=== PATIENT | female | born 1985 | race Caucasian/White ===

== ENCOUNTER 2020-11-06 07:34 | Day surgery (SDC) | payer OTHER ==
[~2020-11-06 07:34] MED LIST: Lidocaine 1% with EPINEPHrine 1:100,000 50 ML MDV ONE; Midazolam 1 MG/ML 2 ML SDV ONE; Propofol 200 MG/20 ML SDV ONE; Sodium Chloride 0.9% 10 ML ONE; Sodium Tetradecyl Sulfate 1% 20 MG/2 ML SDV ONE; fentaNYL 100 MCG/2 ML SDV ONE
[2020-11-06] MEDS ORDERED: Sodium Chloride 0.9% 1,000 ML IV SCH (08:00)
[2020-11-06] MEDS ORDERED: Propofol 200 MG/20 ML SDV ONE (08:44)
[2020-11-06] MEDS ORDERED: Lidocaine 1% w/EPINEPHrine 50 ML, Sodium Bicarbonate 5 MEQ in Sodium Chloride 0.9% 950 ML INJECT ONE (09:00)
[2020-11-06] MEDS ORDERED: Lidocaine 2% Jelly 30 ML Tube ONE (09:03)
--- NOTE | 2020-11-06 11:26 | OR ---
DATE OF PROCEDURE: 11/06/2020 SURGEON: Ramon Edwards MD PROCEDURES: 1. Radiofrequency ablation of the right greater saphenous vein. 2. Sclerotherapy, right leg, multiple. 3. Compression wraps, right leg (71940), 20 mmHg pressure. COMPLICATIONS: None. LINER REROLL TENDER: None. PREOPERATIVE DIAGNOSIS: Venous insufficiency with inflammation and pain. POSTOPERATIVE DIAGNOSIS: Venous insufficiency with inflammation and pain. RISKS: Risks, benefits, alternatives, and limitations, including, but not limited to, infection, bleeding, perforation, and DVT formation, were explained to the patient, who wished to proceed. PROCEDURE IN DETAIL: The patient was placed in supine position. The right greater saphenous vein was identified at the level of the ankle. This was accessed using a 21-gauge needle, then exchanged for a 35,000th wire, and then exchanged for a 7-Gambian sheath. A RFA probe was advanced to 3 cm from the saphenofemoral junction. Tumescent fluid was injected in a 1 cm jacket around this and verified a second and a third time. Direct even pressure was deployed as the probe was deployed x2 proximally and distally and x1 in all other segments. The sheath and device were then removed. Direct pressure was held for 10 minutes. Dermabond was applied. Sclerotherapy was then performed on the right leg using 0.33% sodium tetradactyl, 6 on the right. This was always drawn back to ensure intravascular injection only. Two-layer two-stage compression wrapping was then performed of the right leg, distal-to- proximal gradient. The patient tolerated the procedure well. Ramon Edwards MD /[id number]
== END 2020-11-06 10:30 | disposition home or self-care (01) ==
LOC: JP.SDS 07:34
PROVIDERS: ATTEND Surgery
DX: I87.2 Venous insufficiency (chronic) (peripheral) (principal); I80.01 Phlebitis and thrombophlebitis of superficial vessels of right lower extremity; E80.4 Gilbert syndrome
CPT/HCPCS: 36470; 36475; 81025; J1642; J2250; J2704; J3010; J7030; J3490